=== PATIENT | female | born 1960 | race Caucasian/White ===

== ENCOUNTER 2016-02-21 16:12 | Emergency (ER) | payer OTHER ==
--- NOTE | 2016-02-21 18:24 | ED ORDER SUMMARY ---
..... Patient: LEI DANIEL OrderSheet [facility] VisitID: [id number] [place] [address] 55y, F Registration Date/Time: 02/21/2016 ORDER SHEET Weight: 77.1 kg (stated) Allergies: No Known Drug Allergy GENERAL ORDERS: Wet Prep (Cervix) (cervix) Urgent (17:20 02/21/2016 HBivens A.R.N.P.) (Ack 17:41 LTapper) (18:01 LTapper) MEDICATION ORDERS: IV FLUIDS: ORDER SHEET NOTES: [Electronically signed by Varun Ceballos RHunterNHunter (19:08 02/21/2016)] [Electronically signed by Iram Alcaraz A.R.N.P. (21:40 02/21/2016)] [Electronically locked/signed by Varun CeballosNHunter (19:08 02/21/2016)]
--- NOTE | 2016-02-21 18:24 | ED CLINICAL REPORT ---
Clinical Report - Physicians/Mid Levels [facility] [address] [place] [address] 02/21/2016 16:12 Patient: LEI DANIEL Time Seen: 17:03; initial patient contact, initial documentation, patient care assumed. Arrived- By private vehicle. Historian- patient. HISTORY OF PRESENT ILLNESS Chief Complaint: ABDOMINAL PAIN. This started yesterday and is still present. It was abrupt in onset and has been constant. At its maximum, severity described as moderate. When seen in the E.D., severity described as mild. Modifying factors. Not worsened by anything. Not relieved by anything. It is described as "pain" and pressure. It is described as located in the right lower quadrant, right pelvis, left lower quadrant and left pelvis and in the lower abdomen. It is described as located in the pelvic area and radiating to the low back. No nausea, loss of appetite, vomiting or diarrhea. No additional abdominal pain. No recent travel. Similar symptoms previously: Once, worse. ( did same thing one year ago, except bleeding started a few days after the pain, dx with postmenopausal bleeding, big work up done, biopsy, everything normal, put on hormones and bleeding last approx x6 wks). Recent medical care: Not recently seen/assessed. REVIEW OF SYSTEMS No constipation, black stools, hematemesis, difficulty with urination or pain with urination. No urinary frequency, missed periods, abnormal bleeding, bloody stools or fever. No chest pain or difficulty breathing. Denies current . All systems otherwise negative, except as recorded above. PAST HISTORY See nurses notes. PROBLEMS: Myofascial Strain. Lumbar Radiculopathy. Diarrhea. Anxiety Reaction. LNMP - Last Normal Menstrual Period. --16:39 Varun Ceballos, RAramis. ADDITIONAL SURGERIES: Tonsillectomy. --16:39 Vraun Ceballos R.N. SOCIAL HISTORY Never smoker. No alcohol use or drug use. No recent travel. Is a local resident. FAMILY HISTORY Negative. ADDITIONAL NOTES The nursing notes have been reviewed with agreement regarding the chief complaint, HPI, ROS, PMH and patient medications and allergies. PHYSICAL EXAM Vital Signs: 02/21/2016 16:34 BP: 150/78. HR: 83. RR: 16. O2 saturation: 99%. Temp: 98.2 F. Pain level now: 5/10. Have been reviewed as normal and appear to be correct. Appearance: Alert. Oriented X3. No acute distress. Eyes: Pupils equal, round and reactive to light. Eyes normal inspection. ENT: Ears normal. Nose normal. Pharynx normal. Neck: Normal inspection. Neck supple. CVS: Normal heart rate and rhythm. Heart sounds normal. Pulses normal. Respiratory: No respiratory distress. Breath sounds normal. Chest nontender. Abdomen: Soft and nontender. Bowel sounds normal. No organomegaly. No mass. Back: Normal inspection. : Normal external exam. Speculum exam abnormal. A scant amount of yellow vaginal discharge present. No vaginal bleeding. Bimanual exam normal. No tenderness present on bimanual exam. Uterus not enlarged. No pelvic mass. Skin: Skin warm and dry. Normal skin color. No rash. Normal skin turgor. Extremities: Extremities exhibit normal ROM. No lower extremity edema. Neuro: Oriented X 3. No motor deficit. No sensory deficit. LABS, X-RAYS, AND EKG Laboratory Tests: Wet Prep: (MARIUSZ: 02/21/2016 17:55) ( MsgRcvd 02/21/2016 18:14) Final results SPECIMEN DESCRIPTION: CERVIX Test Result Flag Units (Reference) WET MOUNT CLUE CELLS:: MODERATE * EPITHELIAL CELLS: MODERATE -- SOURCE?: CERVIX WHITE BLOOD CELLS: MODERATE TRICHOMONAS:: NONE -- YEAST:: NONE . PROGRESS AND PROCEDURES Patient counseled in person regarding the patient's stable condition, test results and diagnosis. 18:22. Differential Diagnosis: I considered acute appendicitis, diverticulitis, colon cancer, urinary tract infection, ureterolithiasis, ovarian cyst, ovarian torsion, pelvic inflammatory disease, pelvic abscess, Mittelschmerz syndrome, endometriosis, cancer and viral syndrome as a possible cause of abdominal pain in this patient. This is a partial list of diagnoses considered. Above considerations are based on history, physical exam and laboratory data. Differential diagnosis was discussed with patient. Disposition: Discharged home in good and improved condition (18:24). Condition: good and stable. CLINICAL IMPRESSION Acute moderate bacterial vaginitis INSTRUCTIONS No sexual contact. Warnings: GENERAL WARNINGS: Return or contact your physician immediately if your condition worsens or changes unexpectedly, if not improving as expected, or if other problems arise. SPECIFICALLY, return if you develop pain in the abdomen or pelvis, fever, the inability to keep fluids down, blood in vomitus, blood in diarrhea, fainting, lightheadedness or vaginal bleeding. Prescription Medications: Flagyl 500 mg: Take 1 tablet orally every 12 hours for 7 days. No refill. Substitution is permissible. Follow-up: Follow up with your doctor in about three days even if well. Call for an appointment. Summary of care provided to patient. Understanding of the discharge instructions verbalized by patient. (Electronically signed by Iram Alcaraz A.R.N.P. 02/21/2016 21:40)
--- NOTE | 2016-02-21 18:24 | ED NURSING NOTES ---
Clinical Report - Nurses [facility] [place] [address] 02/21/2016 16:12 Patient: LEI DANIEL TRIAGE Triage time 1634 PM. Chief Complaint: PELVIC PAIN and (lower abdominal pain). Alert. No acute distress. --16:40 Varun Ceballos R.N. 16:34 02/21/16. BP: 150/78. HR: 83. RR: 16. O2 saturation: 99% on room air. Temp: 98.2 F (oral). Pain level now: 06/15. --16:40 Varun Ceballos R.N. Weight: 77.1 kg stated. Height/Length: 64 inches Per Patient. BMI: 29.2. --16:39 Varun Ceballos R.N. Medications Estrodile patch . LORazepam Oral 1.5, daily. Naturthryoid. Progesterone (Vaginal) Vaginal. Zolpidem Tartrate Oral. --16:38 Varun Ceballos R.N. Allergies No Known Drug Allergy. --16:38 Varun Ceballos R.N. History Arrived by private vehicle. Historian: patient. Accompanied by family. This started yesterday. ( Patient presents to the ED with symptoms of lower abdominal pain and pressure. Patient states that she is postmenopausal and her PCP prescribed her estrogen and progesterone to help with her menopause symptoms. Patient states approximately one year ago patient had similar lower abdominal pain with a sudden onset of large amounts of vaginal bleeding. Patient states that her motorcycle repairer told her that the lower abdominal pain and bleeding is sometimes a side effect the hormones. Patient states that her PCP no longer takes her insurance and she is looking for a new PCP.). She has had abdominal pain. SOCIAL HX: Never smoker. Alcohol use. (no). History of drug use. (no). FALL RISK ASSESSMENT: Fall risk assessment completed. No fall risk identified. NUTRITIONAL RISK ASSESSMENT: The nutritional risk assessment revealed no deficiencies. FUNCTIONAL ASSESSMENT: Functional assessment: no impairments noted. LEARNING NEEDS ASSESSMENT: The learning needs assessment revealed no barriers. SKIN INTEGRITY ASSESSMENT: Skin integrity risk assessment completed. No skin integrity risk identified. --16:40 Varun Ceballos R.N. PROBLEMS: Myofascial Strain. Lumbar Radiculopathy. Diarrhea. Anxiety Reaction. LNMP - Last Normal Menstrual Period. --16:39 Varun Ceballos R.N. ADDITIONAL SURGERIES: Tonsillectomy. --16:39 Varun Ceballos R.N. PHYSICAL ASSESSMENT Ambulatory to room. GENERAL / NEURO / PSYCH: Alert. Oriented X 4. Appears in no acute distress. HEENT: Mucous membranes are pink. RESPIRATORY: Respirations not labored. Breath sounds within normal limits. CVS: Normal heart rate and rhythm. Capillary refill less than 2 seconds. GI / : ( lower abdominal pain). SKIN: Skin is warm and dry. --16:41 Varun Ceballos R.N. NURSING PROGRESS NOTES Checked patient name and birthdate: patient confirmed. Instructions provided to collect clean catch urine and patient verbalized understanding. Clean catch urine collected with return of yellow-colored clear urine; odor is normal; sample sent to lab for urinalysis and culture. Specimen labeled in the presence of the patient. --18:02 Napoleon Niño. DISPOSITION / DISCHARGE Condition at departure: improved. No learning barriers present. Reviewed medication(s) side effects, precautions, dosing and course information. Prescription(s) given to the patient. Reviewed referral to a motorcycle repairer. Patient verbalized understanding. Written instructions provided in Cymro. The patient was discharged home and accompanied by spouse. She left the Emergency Department ambulatory and via private vehicle. Spouse driving. --19:07 Varun Ceballos R.N. 19:06 02/21/16. BP: 126/65. HR: 87. RR: 16. O2 saturation: 95%. Temp: 98.2 F (oral). Pain level now: 0/10. --19:07 Varun Ceballos R.N. Departure time: 1907 PM. --19:07 Varun Ceballos R.N. Locked/Released at 02/21/2016 19:08 by Varun Ceballos R.N.
--- NOTE | 2016-02-21 18:24 | ED NURSING NOTES ---
Clinical Report - Nurses [facility] [place] [address] 02/21/2016 16:12 Patient: LEI DANIEL TRIAGE Triage time 1634 PM. Chief Complaint: PELVIC PAIN and (lower abdominal pain). Alert. No acute distress. --16:40 Varun Ceballos R.N. 16:34 02/21/16. BP: 150/78. HR: 83. RR: 16. O2 saturation: 99% on room air. Temp: 98.2 F (oral). Pain level now: 06/15. --16:40 Varun Ceballos R.N. Weight: 77.1 kg stated. Height/Length: 64 inches Per Patient. BMI: 29.2. --16:39 Varun Ceballos R.N. Medications Estrodile patch . LORazepam Oral 1.5, daily. Naturthryoid. Progesterone (Vaginal) Vaginal. Zolpidem Tartrate Oral. --16:38 Varun Ceballos R.N. Allergies No Known Drug Allergy. --16:38 Varun Ceballos R.N. History Arrived by private vehicle. Historian: patient. Accompanied by family. This started yesterday. ( Patient presents to the ED with symptoms of lower abdominal pain and pressure. Patient states that she is postmenopausal and her PCP prescribed her estrogen and progesterone to help with her menopause symptoms. Patient states approximately one year ago patient had similar lower abdominal pain with a sudden onset of large amounts of vaginal bleeding. Patient states that her tankage grinder operator told her that the lower abdominal pain and bleeding is sometimes a side effect the hormones. Patient states that her PCP no longer takes her insurance and she is looking for a new PCP.). She has had abdominal pain. SOCIAL HX: Never smoker. Alcohol use. (no). History of drug use. (no). FALL RISK ASSESSMENT: Fall risk assessment completed. No fall risk identified. NUTRITIONAL RISK ASSESSMENT: The nutritional risk assessment revealed no deficiencies. FUNCTIONAL ASSESSMENT: Functional assessment: no impairments noted. LEARNING NEEDS ASSESSMENT: The learning needs assessment revealed no barriers. SKIN INTEGRITY ASSESSMENT: Skin integrity risk assessment completed. No skin integrity risk identified. --16:40 Varun Ceballos R.N. PROBLEMS: Myofascial Strain. Lumbar Radiculopathy. Diarrhea. Anxiety Reaction. LNMP - Last Normal Menstrual Period. --16:39 Varun Ceballos R.N. ADDITIONAL SURGERIES: Tonsillectomy. --16:39 Varun Ceballos R.N. PHYSICAL ASSESSMENT Ambulatory to room. GENERAL / NEURO / PSYCH: Alert. Oriented X 4. Appears in no acute distress. HEENT: Mucous membranes are pink. RESPIRATORY: Respirations not labored. Breath sounds within normal limits. CVS: Normal heart rate and rhythm. Capillary refill less than 2 seconds. GI / : ( lower abdominal pain). SKIN: Skin is warm and dry. --16:41 Varun Ceballos R.N. NURSING PROGRESS NOTES Checked patient name and birthdate: patient confirmed. Instructions provided to collect clean catch urine and patient verbalized understanding. Clean catch urine collected with return of yellow-colored clear urine; odor is normal; sample sent to lab for urinalysis and culture. Specimen labeled in the presence of the patient. --18:02 Napoleon Niño. DISPOSITION / DISCHARGE Condition at departure: improved. No learning barriers present. Reviewed medication(s) side effects, precautions, dosing and course information. Prescription(s) given to the patient. Reviewed referral to a tankage grinder operator. Patient verbalized understanding. Written instructions provided in Dominican. The patient was discharged home and accompanied by spouse. She left the Emergency Department ambulatory and via private vehicle. Spouse driving. --19:07 Varun Ceballos R.N. 19:06 02/21/16. BP: 126/65. HR: 87. RR: 16. O2 saturation: 95%. Temp: 98.2 F (oral). Pain level now: 0/10. --19:07 Varun Ceballos R.N. Departure time: 1907 PM. --19:07 Varun Ceballos R.N. Locked/Released at 02/21/2016 19:08 by Varun Ceballos R.N.
--- NOTE | 2016-02-21 18:24 | ED ORDER SUMMARY ---
..... Patient: LEI DANIEL OrderSheet [facility] VisitID: [id number] [place] [address] 55y, F Registration Date/Time: 02/21/2016 ORDER SHEET Weight: 77.1 kg (stated) Allergies: No Known Drug Allergy GENERAL ORDERS: Wet Prep (Cervix) (cervix) Urgent (17:20 02/21/2016 HBivens A.R.N.P.) (Ack 17:41 LTapper) (18:01 LTapper) MEDICATION ORDERS: IV FLUIDS: ORDER SHEET NOTES: [Electronically signed by Varun Ceballos RHunterNHunter (19:08 02/21/2016)] [Electronically signed by Iram Alcaraz A.R.N.P. (21:40 02/21/2016)] [Electronically locked/signed by Varun CeballosNHunter (19:08 02/21/2016)]
--- NOTE | 2016-02-21 21:40 | ED MED RECONCILIATION SUMMARY ---
Patient: LEI DANIEL Medication Reconciliation Report [facility] VisitID: [id number] [address] [place] [address] 55y, F Registration Date/Time: 02/21/2016 Weight: 77.1 kg Height/Length: 64 in. BMI: 29.2 ALLERGIES: No Known Drug Allergy The patient's Home Medications are listed below: THE FOLLOWING MEDICATIONS NEED TO BE RECONCILED: Estrodile patch LORazepam Oral 1.5, daily Naturthryoid Progesterone (Vaginal) Vaginal Zolpidem Tartrate Oral The source(s) of the original Home Medication information: Not obtained. The following Medications were given to the patient in the Emergency Department: None. The following Medications were prescribed to the patient: Flagyl 500 mg: Take 1 tablet orally every 12 hours for 7 days. No refill. Substitution is permissible. -- Iram Alcaraz A.R.N.P.
--- NOTE | 2016-02-21 21:40 | ED DISCHARGE INSTRUCTIONS ---
Patient: LEI DANIEL General Instructions [facility] VisitID: [id number] [place] [address] 55y, F Registration Date/Time: 02/21/2016 Acute moderate bacterial vaginitis INSTRUCTIONS No sexual contact. Warnings: GENERAL WARNINGS: Return or contact your physician immediately if your condition worsens or changes unexpectedly, if not improving as expected, or if other problems arise. SPECIFICALLY, return if you develop pain in the abdomen or pelvis, fever, the inability to keep fluids down, blood in vomitus, blood in diarrhea, fainting, lightheadedness or vaginal bleeding. Prescription Medications: Flagyl 500 mg: Take 1 tablet orally every 12 hours for 7 days. No refill. Substitution is permissible. Follow-up: Follow up with your doctor in about three days even if well. Call for an appointment. Summary of care provided to patient. Understanding of the discharge instructions verbalized by patient. ADDITIONAL INFORMATION Bacterial Vaginosis You have a bacterial infection of the vagina called bacterial vaginosis (BV). It may also be called gardnerella or non-specific vaginitis. BV occurs when the "bad" bacteria outnumber the "good" bacteria that are normally present in the vagina. Symptoms include foul-smelling vaginal discharge (most noticeable after vaginal intercourse). There may also be burning with urination. The burning is caused as the urine passes over the inflamed outer vaginal area. The cause of bacterial vaginosis is not certain. However, your risk is higher if you recently began a new sexual relationship, or have had many sex partners in the past. Your risk is also higher if you douche often. While bacterial vaginosis most often occurs only in sexually active women, this is not a true sexually transmitted disease. You did not get this from your partner. You cannot give it to your partner. The infection may be related to temporary changes in the pH of vaginal fluids after being exposed to semen. Home Care: Keep the genital area clean and free of discharge. Do this by wearing an absorbent sanitary pad and changing it often. Shower daily. When you shower, clean the outer vaginal area with plain soap and water. Do not douche during treatment unless advised to do so by your doctor. Routine douching after treatment is no longer recommended to clean the vagina. It raises your risk of vaginal infection and pelvic inflammatory disease. Avoid having sex until you have finished all antibiotic medicine and all symptoms have gone away. Wear cotton underwear or cotton-lined panty hose. Dont wear pants that are too tight. Limiting the number of sex partners you have lowers your risk of this and other vaginal infections, STDs, and HIV. Take all medicine as directed until it is gone, even if you are feeling better. If you dont do this, symptoms might return. Follow Up with your doctor if symptoms dont go away after the medicine is finished. Get Prompt Medical Attention if any of the following occur: Fever of 100.4F (38C) or higher, or as directed by your healthcare provider Lower abdominal pain Rash or joint pain Painful sores around the outer vaginal area or on your partners penis Metronidazole Oral tablet What is this medicine? METRONIDAZOLE (me troe NI da zole) is an antiinfective. It is used to treat certain kinds of bacterial and protozoal infections. It will not work for colds, flu, or other viral infections. How should I use this medicine? Take this medicine by mouth with a full glass of water. Follow the directions on the prescription label. Take your medicine at regular intervals. Do not take your medicine more often than directed. Take all of your medicine as directed even if you think you are better. Do not skip doses or stop your medicine early. Talk to your cashier office regarding the use of this medicine in children. Special care may be needed. What side effects may I notice from receiving this medicine? Side effects that you should report to your doctor or health customer care consultant as soon as possible: allergic reactions like skin rash or hives, swelling of the face, lips, or tongue confusion, clumsiness difficulty speaking discolored or sore mouth dizziness fever, infection numbness, tingling, pain or weakness in the hands or feet trouble passing urine or change in the amount of urine redness, blistering, peeling or loosening of the skin, including inside the mouth seizures unusually weak or tired vaginal irritation, dryness, or discharge Side effects that usually do not require medical attention (report to your doctor or health customer care consultant if they continue or are bothersome): diarrhea headache irritability metallic taste nausea stomach pain or cramps trouble sleeping What may interact with this medicine? Do not take this medicine with any of the following medications: alcohol or any product that contains alcohol amprenavir oral solution cisapride disulfiram dofetilide dronedarone paclitaxel injection pimozide ritonavir oral solution sertraline oral solution sulfamethoxazole-trimethoprim injection thioridazine ziprasidone This medicine may also interact with the following medications: cimetidine lithium other medicines that prolong the QT interval (cause an abnormal heart rhythm) phenobarbital phenytoin warfarin What if I miss a dose? If you miss a dose, take it as soon as you can. If it is almost time for your next dose, take only that dose. Do not take double or extra doses. Where should I keep my medicine? Keep out of the reach of children. Store at room temperature below 25 degrees C (77 degrees F). Protect from light. Keep container tightly closed. Throw away any unused medicine after the expiration date. What should I tell my health care provider before I take this medicine? They need to know if you have any of these conditions: anemia or other blood disorders disease of the nervous system fungal or yeast infection if you drink alcohol containing drinks liver disease seizures an unusual or allergic reaction to metronidazole, or other medicines, foods, dyes, or preservatives or trying to get breast-feeding What should I watch for while using this medicine? Tell your doctor or health customer care consultant if your symptoms do not improve or if they get worse. You may get drowsy or dizzy. Do not drive, use machinery, or do anything that needs mental alertness until you know how this medicine affects you. Do not stand or sit up quickly, especially if you are an older patient. This reduces the risk of dizzy or fainting spells. Avoid alcoholic drinks while you are taking this medicine and for three days afterward. Alcohol may make you feel dizzy, sick, or flushed. If you are being treated for a sexually transmitted disease, avoid sexual contact until you have finished your treatment. Your sexual partner may also need treatment. You have been given the following additional information: Vaginitis, Bacterial Metronidazole Oral tablet (Electronically signed by Iram Alcaraz A.R.N.P. 02/21/2016 21:40)
--- NOTE | 2016-02-21 21:40 | ED MAR SUMMARY ---
..... Medication Administration Record [facility] [address] [place] [id number] Patient: LEI DANIEL Visit ID: [id number] 55y, F Weight: 77.1 kg Height/Length: 64 in BMI: 29.2 ALLERGIES: No Known Drug Allergy
--- NOTE | 2016-02-21 21:40 | ED MAR SUMMARY ---
..... Medication Administration Record [facility] [address] [place], [place] [id number] Patient: LEI DANIEL Visit ID: [id number] 55y, F Weight: 77.1 kg Height/Length: 64 in BMI: 29.2 ALLERGIES: No Known Drug Allergy
--- NOTE | 2016-02-21 21:40 | ED MED RECONCILIATION SUMMARY ---
Patient: LEI DANIEL Medication Reconciliation Report [facility] VisitID: [id number] [address] [place] [address] 55y, F Registration Date/Time: 02/21/2016 Weight: 77.1 kg Height/Length: 64 in. BMI: 29.2 ALLERGIES: No Known Drug Allergy The patient's Home Medications are listed below: THE FOLLOWING MEDICATIONS NEED TO BE RECONCILED: Estrodile patch LORazepam Oral 1.5, daily Naturthryoid Progesterone (Vaginal) Vaginal Zolpidem Tartrate Oral The source(s) of the original Home Medication information: Not obtained. The following Medications were given to the patient in the Emergency Department: None. The following Medications were prescribed to the patient: Flagyl 500 mg: Take 1 tablet orally every 12 hours for 7 days. No refill. Substitution is permissible. -- Iram Alcaraz A.R.N.P.
== END 2016-02-21 19:02 | disposition home or self-care (01) ==
LOC: ED SRH 16:12
DX: N76.0 Acute vaginitis (principal)
CPT/HCPCS: 90195